=== PATIENT | female | born 1945 | race Caucasian/White ===

== ENCOUNTER 2017-03-11 07:49 | Day surgery (SDC) | payer OTHER ==
[2017-03-05 17:02] VITALS: BMI 24.3
[2017-03-11] MEDS ORDERED: LIDOCAINE HCL/PF 2% SDV 5ML VIAL ONE (08:08)
[2017-03-11] MEDS ORDERED: PROPOFOL 20 ML ONE ×2 (08:08)
[2017-03-11 10:31] VITALS: BP 130/80; PULSE 58
[2017-03-11 10:33] VITALS: TEMP 97.9
== END 2017-03-11 10:30 | disposition home or self-care (01) ==
LOC: FASU-ENDO 07:49
PROVIDERS: ATTEND Internal Medicine Gastroenterology
PROC: 0DJD8ZZ Inspection of Lower Intestinal Tract, Via Natural or Artificial Opening Endoscopic (ICD-10-PCS; principal; 2017-03-11 08:39)
DX: Z12.11 Encounter for screening for malignant neoplasm of colon (principal)

== ENCOUNTER 2023-09-17 08:32 | Day surgery (SDC) | payer OTHER ==
[2023-09-16 13:13] VITALS: BMI 27.4
[2023-09-17] MEDS ORDERED: BUPIVACAINE HCL/PF 2.5 MG/ML - 30 ML VIAL IJ ONE (10:00)
[2023-09-17] MEDS ORDERED: MIDAZOLAM HCL 2 MG/2 ML SINGLE DOSE VIAL ONE (10:18)
[2023-09-17] MEDS ORDERED: PROPOFOL 20 ML ONE (10:18)
[2023-09-17] MEDS ORDERED: ePHEDrine SULFATE 50 MG/1 ML AMPULE ONE (10:45)
[2023-09-17] MEDS ORDERED: ceFAZolin SODIUM 1 GM VIAL ONE (10:53)
[2023-09-17] MEDS ORDERED: DEXAMETHASONE SOD PHOSPHATE 4 MG/1 ML VIAL ONE (10:53)
[2023-09-17] MEDS ORDERED: ONDANSETRON 4 MG/2 ML VIAL ONE (10:53)
[2023-09-17] MEDS ORDERED: KETOROLAC TROMETHAMINE 30 MG/1 ML VIAL ONE (10:53)
[2023-09-17] MEDS ORDERED: ONDANSETRON 4 MG/2 ML VIAL IVPUSH PRN (11:19)
[2023-09-17] MEDS ORDERED: oxyCODONE HCL 5 MG TABLET PO PRN (11:19)
[2023-09-17] MEDS ORDERED: LACTATED RINGERS SOLUTION 1,000 ML IV SCH (11:30)
[2023-09-17] MEDS ORDERED: FENTANYL CITRATE/PF 50 MCG/ML VIAL ONE (11:37)
[2023-09-17 14:03] VITALS: RESP 20; TEMP 97.1
[2023-09-17 14:07] VITALS: BP 136/64; PULSE 60
== END 2023-09-17 13:50 | disposition home or self-care (01) ==
LOC: FASU 08:32
PROVIDERS: ATTEND Orthopaedic Surgery
PROC: 0SBC4ZZ Excision of Right Knee Joint, Percutaneous Endoscopic Approach (ICD-10-PCS; 2023-09-17)
PROC: 0SBC4ZZ Excision of Right Knee Joint, Percutaneous Endoscopic Approach (ICD-10-PCS; 2023-09-17)
PROC: 0SBC4ZZ Excision of Right Knee Joint, Percutaneous Endoscopic Approach (ICD-10-PCS; principal; 2023-09-17 10:40)
DX: S83.241A Other tear of medial meniscus, current injury, right knee, initial encounter (principal); S83.281A Other tear of lateral meniscus, current injury, right knee, initial encounter; M65.861 Other synovitis and tenosynovitis, right lower leg; S83.8X1A Sprain of other specified parts of right knee, initial encounter; X58.XXXA Exposure to other specified factors, initial encounter; Y92.9 Unspecified place or not applicable; Y93.9 Activity, unspecified
CPT/HCPCS: 94760